=== PATIENT | female | born 2000 | race Caucasian/White ===

== ENCOUNTER 2022-09-24 04:01 | Inpatient (IN) | payer MEDICAID ==
[~2022-09-24 04:01] MED LIST: Bupivacaine 0.25% 10 ML SDV ONE; Lidocaine 1.5% with EPINEPHrine 1:200,000 5 ML Amp ONE
[2022-09-24] MEDS ORDERED: Nalbuphine 10 MG/0.5 ML Syringe IVPUSH PRN (04:17)
[2022-09-24] MEDS: Lactated Ringers 1,000 ML IV SCH ×2 (04:21→05:30)
[2022-09-24] MEDS ORDERED: Oxytocin/Lactated Ringers 10 UNIT/1,000 ML BAG IV SCH (04:30)
[2022-09-24] MEDS ORDERED: fentaNYL 100 MCG/2 ML SDV ONE (05:26)
[2022-09-24] MEDS ORDERED: diphenhydrAMINE 50 MG/ML SDV IVPUSH PRN (05:40)
[2022-09-24] MEDS ORDERED: fentaNYL 100 MCG/2 ML SDV EPIDUR PRN (05:40)
[2022-09-24] MEDS ORDERED: Bupivacaine/fentaNYL/NS 100 ML Bag EPIDUR PRN (05:40)
[2022-09-24] MEDS ORDERED: ePHEDrine 50 MG/ML SDV IVPUSH PRN (05:40)
[2022-09-24] MEDS ORDERED: Witch Hazel Medicated Pads 40/Jar TOP PRN (07:26)
[2022-09-24] MEDS ORDERED: Benzocaine/Menthol 20%-0.5% Spray 78 GM Cannister TOP PRN (07:26)
[2022-09-24] MEDS ORDERED: Ibuprofen 600 MG Tab PO PRN (07:26)
[2022-09-24] MEDS ORDERED: Acetaminophen 325 MG Tab PO PRN (07:26)
== END 2022-09-25 11:20 | disposition home or self-care (01) | DRG 807 ==
LOC: JD.OBCHECK 04:01 → JD.OB 04:01 → OBSVTOIN 07:18 → JD.OBCHECK 07:24 → UNDODISOB 11:40 → JD.OB 12:25 → UNDODISOB 09-25 11:20
PROVIDERS: ADMIT Obstetrics & Gynecology; ATTEND Obstetrics & Gynecology
PROC: 10E0XZZ Delivery of Products of Conception, External Approach (ICD-10-PCS; principal; 2022-09-24)
PROC: 0UQMXZZ Repair Vulva, External Approach (ICD-10-PCS; 2022-09-24)
PROC: 10907ZC Drainage of Amniotic Fluid, Therapeutic from Products of Conception, Via Natural or Artificial Opening (ICD-10-PCS; 2022-09-24)
PROC: 3E0R3BZ Introduction of Anesthetic Agent into Spinal Canal, Percutaneous Approach (ICD-10-PCS; 2022-09-24)
PROC: 00HU33Z Insertion of Infusion Device into Spinal Canal, Percutaneous Approach (ICD-10-PCS; 2022-09-24)
DX: O99.344 Other mental disorders complicating childbirth (principal); Z37.0 Single live birth; O77.0 Labor and delivery complicated by meconium in amniotic fluid; O71.82 Other specified trauma to perineum and vulva; F32.A Depression, unspecified; F41.9 Anxiety disorder, unspecified; Z98.890 Other specified postprocedural states; Z3A.37 37 weeks gestation of pregnancy
CPT/HCPCS: 36415; 59025; 59409; 85025; 86592; 86850; 86900; 86901; A9270-GY; J3010; J3490; J7120